=== PATIENT | female | born 1955 | race Hispanic/Latino ===

== ENCOUNTER 2017-04-14 14:47 | Emergency (ER) | payer OTHER, BC ==
[2017-04-14 14:48] VITALS: BMI 26.9
[2017-04-14 14:54] VITALS: BP 151/80; PULSE 74; RESP 18; TEMP 97.7; O2SAT 99
--- NOTE | 2017-04-14 15:43 | ED PDOC ---
HPI: Back Time Seen by Provider: 04/14/17 14:56 Chief Complaint (Nursing): Back Pain Chief Complaint (Provider): muscle spasm History Per: Patient History/Exam Limitations: no limitations Additional Complaint(s): 62yo F in ER for eval right sided muscle spasm sustained last week worsening in pain noted while at work after pushing a heavy pt. Pt has attempted to take alieve and rest, however pt has been persistent. Pt denies: dysuria hematuira nausea vomiting fever abd pain. denies fall states that pain is worsened with mov't radiation of pain to Lower extremity. Past Medical History Reviewed: Historical Data, Nursing Documentation, Vital Signs Vital Signs: Last Vital Signs Temp 97.7 F 04/14/17 14:51 Pulse 74 04/14/17 14:51 Resp 18 04/14/17 14:51 BP 151/80 H 04/14/17 14:51 Pulse Ox 99 04/14/17 14:51 - Medical History PMH: Denies: HIV, Chronic Kidney Disease - Family History Family History: States: No Known Family Hx - Home Medications Home Medications: Ambulatory Orders Medication Instructions Recorded Aspirin [Aspirin Chewable] 81 mg PO DAILY #0 chew 11/03/14 Atorvastatin [Lipitor] 10 mg PO DAILY #0 tab 11/03/14 Meclizine [Meclizine*] 25 mg PO TID PRN #0 tab 11/03/14 Ondansetron [Zofran] 4 mg PO Q4 PRN #14 tab 11/03/14 Azithromycin [Zithromax] 250 mg PO DAILY #6 tab 07/06/16 Fluticasone Propionate [Flonase] 2 spr NS DAILY PRN #1 bottle 07/06/16 Promethazine DM [Phenergan DM 5 - 10 ml PO Q8 PRN #120 ml 07/06/16 Syrup] Cyclobenzaprine [Cyclobenzaprine 10 mg PO BID #14 tab 04/14/17 HCl] - Allergies Allergies/Adverse Reactions: Allergies Allergy/AdvReac Type Severity Reaction Status Date / Time Iodine and Iodide Containing Allergy RASH Verified 07/06/16 11:06 Produc Review of Systems ROS Statement: Except As Marked, All Systems Reviewed And Found Negative Musculoskeletal: Positive for: Back Pain Physical Exam - Reviewed Nursing Documentation Reviewed: Yes Vital Signs Reviewed: Yes - Physical Exam Appears: Positive for: Well, Non-toxic, No Acute Distress Skin: Positive for: Normal Color, Warm, DRY Cardiovascular/Chest: Positive for: Regular Rate, Rhythm Respiratory: Positive for: CNT, Normal Breath Sounds Back: Positive for: Other (no midline tednerness no SVA tenderness spasm noted to right latismus dorsi. no pain with ROM. ) Neurologic/Psych: Positive for: Alert, Oriented - ECG O2 Sat by Pulse Oximetry: 99 - Progress ED Course And Treament: pt will need f/u with employee health for continued evaluation of spasm. flexril PO and rest and time off from work Medical Decision Making Medical Decision Making: further medical eval with employee health Disposition - Clinical Impression Clinical Impression: Muscle spasm - Patient ED Disposition Is Patient to be Admitted: No Counseled Patient/Family Regarding: Need For Followup, Rx Given - Disposition Disposition: Routine/Home Disposition Time: 15:48 Condition: STABLE Prescriptions: Cyclobenzaprine [Cyclobenzaprine HCl] 10 mg PO BID #14 tab Instructions: Muscle Spasm (ED) Forms: [employer] [facility] (Czech), [facility] ED School/Work Excuse
== END 2017-04-14 16:12 | disposition home or self-care (01) ==
LOC: H.ER 14:47
DX: M62.830 Muscle spasm of back (principal); Z79.82 Long term (current) use of aspirin

== ENCOUNTER 2017-04-30 22:07 | Emergency (ER) | payer BC ==
[2017-04-30 22:08] VITALS: BMI 26.9
[2017-04-30 22:20] VITALS: RESP 16
[2017-04-30] MEDS ORDERED: Sodium Chloride 0.9% 1,000 ML IV STA (23:10)
--- NOTE | 2017-04-30 23:55 | ED PDOC ---
HPI: CCC, URI, Sore Throat Time Seen by Provider: 04/30/17 22:33 Chief Complaint (Nursing): Flu-like Symptoms Chief Complaint (Provider): flu like symptoms History Per: Patient History/Exam Limitations: no limitations Have you had recent travel within the past 21 days to any of the following countries: [place], [place], [place] or [place]?: No Onset/Duration Of Symptoms: Days (2) Current Symptoms Are (Timing): Still Present Location Of Pain: Diffuse Myalgias, Headache Associated Symptoms: Fever, Chills, Cough, Myalgias, Nausea, Vomiting, Diarrhea. denies: Sputum Ear Symptoms: Bilateral: None Severity: Moderate Pain Scale Rating Of: 7 Past Medical History Reviewed: Historical Data, Nursing Documentation, Vital Signs Vital Signs: Last Vital Signs Temp 99 F 05/01/17 01:56 Pulse 106 H 05/01/17 01:56 Resp 16 05/01/17 01:56 BP 111/54 L 05/01/17 01:56 Pulse Ox 99 05/01/17 05:10 - Medical History PMH: Denies: HIV, Chronic Kidney Disease - Family History Family History: States: No Known Family Hx - Home Medications Home Medications: Ambulatory Orders Medication Instructions Recorded Aspirin [Aspirin Chewable] 81 mg PO DAILY #0 chew 11/03/14 Atorvastatin [Lipitor] 10 mg PO DAILY #0 tab 11/03/14 Meclizine [Meclizine*] 25 mg PO TID PRN #0 tab 11/03/14 Ondansetron [Zofran] 4 mg PO Q4 PRN #14 tab 11/03/14 Azithromycin [Zithromax] 250 mg PO DAILY #6 tab 07/06/16 Fluticasone Propionate [Flonase] 2 spr NS DAILY PRN #1 bottle 07/06/16 Promethazine DM [Phenergan DM 5 - 10 ml PO Q8 PRN #120 ml 07/06/16 Syrup] Cyclobenzaprine [Cyclobenzaprine 10 mg PO BID #14 tab 04/14/17 HCl] Ibuprofen [Motrin Tab] 1 tab PO Q6 PRN #20 tab 05/01/17 Oseltamivir [Tamiflu] 75 mg PO BID #9 cap 05/01/17 Promethazine DM [Phenergan DM 5 ml PO Q6 PRN #1 bottle 05/01/17 Syrup] - Allergies Allergies/Adverse Reactions: Allergies Allergy/AdvReac Type Severity Reaction Status Date / Time Iodine and Iodide Containing Allergy RASH Verified 07/06/16 11:06 Produc Curb-65 Severity Score - CURB-65 Severity Score Confusion: No Bun >19mg/dl (>7mmol/L): No Respiratory Rate greater than/equal to 30: No Systolic BP <90 or Diastolic BP less than/equal 60mmHg: No Age >64: No Curb-65 Score: 0 Percentage 30-day mortality: 0.6% Review of Systems ROS Statement: Except As Marked, All Systems Reviewed And Found Negative Constitutional: Positive for: Fever, Chills, Sweats, Malaise Respiratory: Positive for: Cough. Negative for: Shortness of Breath Gastrointestinal: Positive for: Nausea, Abdominal Pain, Diarrhea. Negative for : Vomiting Physical Exam - Reviewed Nursing Documentation Reviewed: Yes Vital Signs Reviewed: Yes - Physical Exam Appears: Positive for: Non-toxic, Uncomfortable Skin: Positive for: Warm Eye Exam: Positive for: EOMI, Normal appearance, PERRL ENT: Positive for: Normal ENT Inspection Neck: Positive for: Normal, Painless ROM Cardiovascular/Chest: Positive for: Regular Rate, Rhythm Respiratory: Positive for: CNT, Normal Breath Sounds Gastrointestinal/Abdominal: Positive for: Normal Exam, Bowel Sounds, Soft. Negative for: Tenderness Neurologic/Psych: Positive for: Alert, Oriented - Laboratory Results Result Diagrams: 04/30/17 23:57 04/30/17 23:57 - ECG O2 Sat by Pulse Oximetry: 96 - Progress ED Course And Treament: impression: Flu Orders Category Date Time Status COMP METABOLIC PANEL Stat Chem 04/30/17 23:09 Ordered CHEST TWO VIEWS (PA/LAT) [RAD] Stat Exams 04/30/17 22:35 Taken CBC (WITH DIFFERENTIAL) Stat [place]ST[place]O 04/30/17 23:09 Ordered Ibuprofen [Motrin Tab] Med 04/30/17 23:12 Discontinued 600 mg .ROUTE .STK-MED ONE Ibuprofen [Motrin Tab] Med 04/30/17 22:36 Discontinued 600 mg PO STAT STA Sodium Chloride 0.9% 1,000 ml Med 04/30/17 23:10 Active IV 1,000 mls/hr BLOOD CULTURE Stat Micro 04/30/17 23:36 Ordered INFLUENZA A B Stat Serology 04/30/17 22:52 Received Disposition - Clinical Impression Clinical Impression: Influenza - Patient ED Disposition Is Patient to be Admitted: Transfer of Care - Disposition Disposition: Transfer of Care Disposition Time: 13:29 Condition: IMPROVED Prescriptions: Ibuprofen [Motrin Tab] 1 tab PO Q6 PRN #20 tab PRN Reason: Fever >100.4 F Oseltamivir [Tamiflu] 75 mg PO BID #9 cap Promethazine DM [Phenergan DM Syrup] 5 ml PO Q6 PRN #1 bottle PRN Reason: Cough Instructions: Influenza (ED) Forms: [employer] [facility] (Indonesian), [facility] ED School/Work Excuse
[2017-05-01 00:02] LABS: BASO % 0.3 % (0.0-2.0); EOS % 0.4 % (0.0-4.0); HEMATOCRIT 44.3 % (34.0-47.0); LYMPH # 0.5 K/uL (1.0-4.3); LYMPH % 5.4 % (20.0-40.0); MEAN CELL VOLUME 91.1 fl (81.0-99.0); MEAN CORPUSCULAR HEMOGLOBIN 29.9 pg (27.0-31.0); MEAN CORPUSCULAR HGB CONC 32.8 g/dL (33.0-37.0); MEAN PLATELET VOLUME 9.1 fl (7.2-11.7); MONO # 0.4 K/uL (0.0-0.8); MONO % 4.8 % (0.0-10.0); NEUT # 8.1 K/uL (1.8-7.0); NEUT % 89.1 % (50.0-75.0); PLATELET COUNT 224 K/uL (130-400); RED CELL DISTRIBUTION WIDTH 13.9 % (11.5-14.5); WHITE BLOOD COUNT 9.1 K/uL (4.8-10.8)
[2017-05-01 00:56] LABS: GLUCOSE,RANDOM 103 mg/dL (65-105)
[2017-05-01 00:57] LABS: ALB/GLOB RATIO 1.5 (1.0-2.1); AST/SGOT 40 U/L (14-36); BILIRUBIN,TOTAL 0.6 mg/dl (0.2-1.3); BLOOD UREA NITROGEN 22 mg/dl (7-17); CALCIUM 9.9 mg/dL (8.4-10.2); CARBON DIOXIDE 27 mmol/L (22-30); CHLORIDE 101 mmol/L (98-107); GFR AFRICAN-AMERICAN > 60; SODIUM 139 mmol/l (132-148); TOTAL PROTEIN 8.1 G/DL (6.3-8.2)
[2017-05-01 00:58] LABS: ALKALINE PHOSPHATASE 77 U/L (38-126); ALT/SGPT 55 U/L (9-52)
[2017-05-01 01:57] VITALS: BP 111/54; PULSE 106; TEMP 99
[2017-05-01 02:18] LABS: NEUTROPHIL 86 % (42-75); TOTAL CELLS COUNTED 100
--- NOTE | 2017-05-01 05:07 | ED PDOC ---
- Laboratory Results Result Diagrams: 04/30/17 23:57 04/30/17 23:57 - ECG O2 Sat by Pulse Oximetry: 99 - Progress ED Course And Treament: Case endorsed to tag writer from [facility] EPSTEIN pending labs On re-eval, patient states she is feeling better. Tamiflu dose ordered Patient states she vomited up the Tamiflu, dose re-ordered, IV zofran ordered 5:00 Patient states she is feeling better and would like to be discharged. Rx Tamiflu, ibuprofen given. Advised fluids, rest. Follow up PMD 2-3 days. Return precautions given. Disposition - Clinical Impression Clinical Impression: Influenza - POA Present On Arrival: None - Disposition Disposition: Routine/Home Disposition Time: 05:07 Condition: IMPROVED Prescriptions: Ibuprofen [Motrin Tab] 1 tab PO Q6 PRN #20 tab PRN Reason: Fever >100.4 F Oseltamivir [Tamiflu] 75 mg PO BID #9 cap Promethazine DM [Phenergan DM Syrup] 5 ml PO Q6 PRN #1 bottle PRN Reason: Cough Instructions: Influenza (ED) Forms: [facility] (Bulgarian), [facility] ED School/Work Excuse
--- NOTE | 2017-05-01 08:09 | RAD ---
HISTORY: cough COMPARISON: Single frontal chest radiograph 02/07/2011. TECHNIQUE: Chest PA and lateral FINDINGS: LUNGS: No active pulmonary disease. PLEURA: No significant pleural effusion identified. No pneumothorax apparent. CARDIOVASCULAR: Normal. OSSEOUS STRUCTURES: No significant abnormalities. VISUALIZED UPPER ABDOMEN: Normal. OTHER FINDINGS: None. IMPRESSION: No interval acute cardiopulmonary disease appreciated.
[2017-05-01 13:30] VITALS: O2SAT 96
== END 2017-05-01 05:35 | disposition home or self-care (01) ==
LOC: H.ER 22:07
DX: J11.1 Influenza due to unidentified influenza virus with other respiratory manifestations (principal); Z79.82 Long term (current) use of aspirin
CPT/HCPCS: 71020; 80053; 85025; 87040; 87804; 99283; J2405; J7040

== ENCOUNTER 2018-05-13 12:25 | Emergency (ER) | payer OTHER ==
[2018-05-13 12:25] VITALS: BMI 26.9
--- NOTE | 2018-05-13 13:03 | ED PDOC ---
HPI: General Adult Time Seen by Provider: 05/13/18 13:00 Chief Complaint (Nursing): Flu-like Symptoms Chief Complaint (Provider): uri/cough History Per: Patient (63 y/o female with uri/nasal congestion x 4 days. Minimal cough noted. Denies any fevers/chills. States she feels miserable. No vomiting/diarrhea. Nonsmoker.) Past Medical History Reviewed: Historical Data, Nursing Documentation, Vital Signs Vital Signs: Last Vital Signs Temp 98.0 F 05/13/18 12:33 Pulse 84 05/13/18 12:33 Resp 16 05/13/18 12:33 BP 116/77 05/13/18 12:33 Pulse Ox 96 05/13/18 12:33 - Medical History PMH: Denies: HIV, Chronic Kidney Disease - Family History Family History: States: No Known Family Hx - Home Medications Home Medications: Ambulatory Orders Medication Instructions Recorded Aspirin [Aspirin Chewable] 81 mg PO DAILY #0 chew 11/03/14 Atorvastatin [Lipitor] 10 mg PO DAILY #0 tab 11/03/14 Meclizine [Meclizine*] 25 mg PO TID PRN #0 tab 11/03/14 Ondansetron [Zofran] 4 mg PO Q4 PRN #14 tab 11/03/14 Azithromycin [Zithromax] 250 mg PO DAILY #6 tab 07/06/16 Fluticasone Propionate [Flonase] 2 spr NS DAILY PRN #1 bottle 07/06/16 Promethazine DM [Phenergan DM 5 - 10 ml PO Q8 PRN #120 ml 07/06/16 Syrup] Cyclobenzaprine [Cyclobenzaprine 10 mg PO BID #14 tab 04/14/17 HCl] Ibuprofen [Motrin Tab] 1 tab PO Q6 PRN #20 tab 05/01/17 Oseltamivir Cap [Tamiflu] 75 mg PO BID #9 cap 05/01/17 Promethazine DM [Phenergan DM 5 ml PO Q6 PRN #1 bottle 05/01/17 Syrup] Acetaminophen [Acetaminophen Extra 2 tab PO Q6 PRN #24 tablet 05/13/18 Strength] Promethazine/Codeine 5 ml PO Q12 PRN #100 ml 05/13/18 [Codeine/Promethazine 10 MG/5 Ml-6.25 MG/5 Ml] Pseudoephedrine [Sudafed Tab] 60 mg PO Q6 PRN #24 tab 05/13/18 - Allergies Allergies/Adverse Reactions: Allergies Allergy/AdvReac Type Severity Reaction Status Date / Time Iodine and Iodide Containing Allergy RASH Verified 05/13/18 12:33 Produc Review of Systems ROS Statement: Except As Marked, All Systems Reviewed And Found Negative Constitutional: Positive for: Fever Respiratory: Positive for: Cough Physical Exam - Reviewed Nursing Documentation Reviewed: Yes Vital Signs Reviewed: Yes - Physical Exam Appears: Positive for: Well, Non-toxic, No Acute Distress Head Exam: Positive for: ATRAUMATIC, NORMAL INSPECTION, NORMOCEPHALIC Skin: Positive for: Normal Color, Warm, DRY Eye Exam: Positive for: EOMI, Normal appearance, PERRL ENT: Positive for: Nasal Congestion Neck: Positive for: Normal, Painless ROM Cardiovascular/Chest: Positive for: Regular Rate, Rhythm Respiratory: Positive for: CNT, Normal Breath Sounds Gastrointestinal/Abdominal: Positive for: Normal Exam, Soft Back: Positive for: Normal Inspection Extremity: Positive for: Normal ROM Neurologic/Psych: Positive for: Alert, Oriented - ECG O2 Sat by Pulse Oximetry: 96 - Progress ED Course And Treament: influenza a/b neg Disposition - Clinical Impression Clinical Impression: URI (upper respiratory infection) - Patient ED Disposition Is Patient to be Admitted: No - Disposition Disposition: Routine/Home Disposition Time: 14:11 Condition: FAIR Prescriptions: Acetaminophen [Acetaminophen Extra Strength] 2 tab PO Q6 PRN #24 tablet PRN Reason: Fever >100.4 F Promethazine/Codeine [Codeine/Promethazine 10 MG/5 Ml-6.25 MG/5 Ml] 5 ml PO Q12 PRN #100 ml PRN Reason: Cough Pseudoephedrine [Sudafed Tab] 60 mg PO Q6 PRN #24 tab PRN Reason: Nasal Congestion Instructions: Viral Upper Respiratory Infection, Adult (DC) Forms: [facility] ED School/Work Excuse
[2018-05-13 13:22] VITALS: BP 116/77; PULSE 84; RESP 16; TEMP 98; O2SAT 96
== END 2018-05-13 14:33 | disposition home or self-care (01) ==
LOC: H.ER 12:25
DX: J06.9 Acute upper respiratory infection, unspecified (principal)